=== PATIENT | female | born 1995 | race American Indian/Alaskan Native ===

== ENCOUNTER 2018-09-29 21:22 | Emergency (ER) | payer SELFPAY ==
[2018-09-30 01:35] LABS: HCG Qualitative,Urine Negative (Negative)
--- NOTE | 2018-09-30 01:37 | Emergency Department Report ---
ED Abdominal Pain HPI - General Chief Complaint: Urogenital-Female Stated Complaint: LOWER ABDOMINAL PAIN Time Seen by Provider: 09/30/18 00:35 Source: patient Mode of arrival: Ambulatory Limitations: No Limitations - History of Present Illness Initial Comments: Patient is a 23-year-old female presents to the emergency room with complaints of suprapubic abdominal discomfort that began yesterday. She denies any nausea, vomiting, diarrhea, fever, urinary symptoms. she denies any vaginal discharge or vaginal complaints. She states that the discomfort feels better currently. She denies any past medical history or allergies to medications. she states that she just stopped the Depo injections last month and has not had a cycle since then. - Related Data Allergies Allergy/AdvReac Type Severity Reaction Status Date / Time No Known Allergies Allergy Unverified 09/29/18 21:43 ED Review of Systems ROS: Stated complaint: LOWER ABDOMINAL PAIN Other details as noted in HPI Comment: All other systems reviewed and negative ED Past Medical Hx - Past Medical History Previous Medical History?: No - Surgical History Past Surgical History?: No - Social History Smoking Status: Never Smoker ED Physical Exam - General Limitations: No Limitations General appearance: alert, in no apparent distress - Head Head exam: Present: atraumatic, normocephalic - Eye Eye exam: Present: normal appearance - ENT ENT exam: Present: mucous membranes moist - Respiratory Respiratory exam: Present: normal lung sounds bilaterally. Absent: respiratory distress, wheezes, rales, rhonchi, stridor, chest wall tenderness, accessory muscle use, decreased breath sounds, prolonged expiratory - Cardiovascular Cardiovascular Exam: Present: regular rate, normal rhythm, normal heart sounds. Absent: systolic murmur, diastolic murmur, rubs, gallop - GI/Abdominal GI/Abdominal exam: Present: soft, tenderness (mild, midline suprapubic ), normal bowel sounds. Absent: distended, guarding, rebound, rigid - Speculum exam: Present: other (pt deffered ) - Back Exam Back exam: Absent: CVA tenderness (R), CVA tenderness (L) - Neurological Exam Neurological exam: Present: alert, oriented X3 - Psychiatric Psychiatric exam: Present: normal affect, normal mood - Skin Skin exam: Present: warm, dry, intact ED Course Vital Signs 09/29/18 09/30/18 21:38 02:35 Temperature 98.9 F 98.1 F Pulse Rate 81 78 Respiratory 18 16 Rate Blood Pressure 110/75 Blood Pressure 94/65 [Left] O2 Sat by Pulse 99 100 Oximetry ED Medical Decision Making - Lab Data Lab Results 09/29/18 Range/Units Unknown Urine Color Yellow (Yellow) Urine Turbidity Slightly-cloudy (Clear) Urine pH 5.0 (5.0-7.0) Ur Specific [place] 1.031 H (1.003-1.030) Urine Protein <15 mg/dl (Negative) mg/dL Urine Glucose (UA) Neg (Negative) mg/dL Urine Ketones 20 (Negative) mg/dL Urine Blood Neg (Negative) Urine Nitrite Neg (Negative) Ur Reducing Substances Not Reportable Urine Bilirubin Neg (Negative) Urine Ictotest Not Reportable Urine Urobilinogen < 2.0 (<2.0) mg/dL Ur Leukocyte Esterase Tr (Negative) Urine WBC (Auto) 4.0 (0.0-6.0) /HPF Urine RBC (Auto) 2.0 (0.0-6.0) /HPF U Epithel Cells (Auto) 6.0 (0-13.0) /HPF Urine Bacteria (Auto) 1+ (Negative) /HPF Urine Mucus 3+ /HPF Urine HCG, Qual Negative (Negative) - Medical Decision Making Patient is a 23-year-old female presents to the emergency room with complaints of suprapubic abdominal discomfort that began yesterday. She denies any nausea, vomiting, diarrhea, fever, urinary symptoms. she denies any vaginal discharge or vaginal complaints. She states that the discomfort feels better currently. She denies any past medical history or allergies to medications. she states that she just stopped the Depo injections last month and has not had a cycle since then. vitals are normal. on exam very mild midline suprapubic TTP, no CVAT. UA with no evidence of UTI. urine is negative. suprapubic discomfort could be due to stopping depo or could be about to start cycle since just stopped depo a month ago and has not had a cycle yet. advised pt to please follow up in [facility] and primary care doctor in the next 2-3 days. drink plenty of water. May take Tylenol or ibuprofen for any discomfort. Return to the emergency room for any new or worsening symptoms. Critical care attestation.: If time is entered above; I have spent that time in minutes in the direct care of this critically ill patient, excluding procedure time. ED Disposition Clinical Impression: Suprapubic abdominal pain Disposition: TO HOME OR SELFCARE Is pt being admited?: No Does the pt Need Aspirin: No Condition: Stable Instructions: Abdominal Pain (ED) Additional Instructions: Please follow up in [facility] and primary care doctor in the next 2-3 days. drink plenty of water. May take Tylenol or ibuprofen for any discomfort. Return to the emergency room for any new or worsening symptoms. Referrals: [facility] [Primary Care Provider] - 2-3 Days [facility] [Provider Group] - 2-3 Days [facility] [Provider Group] - 2-3 Days [facility] [Provider Group] - 2-3 Days Forms: Work/School Release Form(ED) Time of Disposition: 01:55 Print Language: SPANISH
[2018-09-30 01:39] LABS: Bacteria,Urine 1+ /HPF (Negative); Bilirubin,Urine NEG (Negative); Blood,Urine NEG (Negative); Color,Urine Yellow (Yellow); Mucus,Urine 3+ /HPF; Protein,Urine <15 mg/dL mg/dL (Negative); Urobilinogen,Urine < 2.0 mg/dL (<2.0)
[2018-09-30 02:38] VITALS: BP 94/65
== END 2018-09-30 02:40 | disposition home or self-care (01) ==
LOC: ED 21:22
DX: R10.30 Lower abdominal pain, unspecified (principal)
CPT/HCPCS: 81001; 81025; 99283

== ENCOUNTER 2019-01-22 09:22 | Emergency (ER) | payer SELFPAY ==
--- NOTE | 2019-01-22 09:42 | Emergency Department Report ---
Chief Complaint: Nausea/Vomiting/Diarrhea Stated Complaint: FLU LIKE SYM/WEAK Time Seen by Provider: 01/22/19 09:35 - HPI History of Present Illness: 23 y/o female comes in for flu like symptoms since . Has N/V/d and cough. No abd pain. Subjective fever. Feels weak. - Exam Vital Signs: 110/75 106 20 98.6 100% ra 5'4 41.9 Physical Exam: AxO times 3 NAD Chest CTA Heart RRR Oral moist MSE screening note: Focused history and physical exam performed. Due to findings the following was ordered: 23 y/o female comes in for flu like symptoms since . Has N/V/d and cough. No abd pain. Recommend increase fluid take OTC IB or Tylenol. Treat symptoms. ED Disposition for MSE Condition: Stable
== END 2019-01-22 09:40 | disposition left against medical advice (07) ==
LOC: ED 09:22
DX: R53.1 Weakness (principal); Z53.21 Procedure and treatment not carried out due to patient leaving prior to being seen by health care provider